=== PATIENT | female | born 1970 | race Caucasian/White ===

== ENCOUNTER → 2016-11-12 | Outpatient (CLI) | payer OTHER ==
--- NOTE | 2016-11-18 12:30 | MG ---
HISTORY: SCREENING Comparison: 01/19/2013, 01/11/2013 FINDINGS: Bilateral CC and MLO projections of the right and left breast were obtained. Heterogeneously dense fibroglandular tissue is seen to be present. No significant architectural distortion, mass or clust ered microcalcifications can be observed to suggest malignancy. No skin thickening or nipple retrac tion is appreciated. No pathological lymphadenopathy can be identified. New benign appearing calci fication is seen at the 6 o'clock position of the left breast. Stable rounded asymmetry in the later al right breast. IMPRESSION: NO RADIOGRAPHIC EVIDENCE OF MALIGNANCY. ACR CATEGORY 2: Benign findings FOLLOW-UP EXAM 1 YEAR. Diagnostic CAD was utilized and reviewed. * 0 (ZERO) - ASSESSMENT INCOMPLETE; ADDITIONAL IMAGING IS NEEDED. * 1/1 (ONE) - NEGATIVE. * 2/II (TWO) - BENIGN FINDINGS. * 3/III (THREE) - PROBABLY BENIGN FINDING; SHORT INTERVAL FOLLOW-UP SUGGESTED. * 4/IV (FOUR) - SUSPICIOUS ABNORMALITY; BIOPSY SHOULD BE CONSIDERED. * 5/V - HIGHLY SUSPICIOUS OF MALIGNANCY; BIOPSY SHOULD BE PERFORMED. A NEGATIVE X-RAY REPORT SHOULD NOT DELAY BIOPSY IF A DOMINANT OR CLINICALLY SUSPICIOUS MASS IS PRESENT; 4 TO 8 PERCENT OF CANCERS ARE NOT IDENTIFIED BY X-RAY. A NEG ATIVE REPORT MAY REINFORCE THE CLINICAL IMPRESSION. ADENOSIS AND DENSE BREASTS MAY OBSCURE AN UNDER LYING NEOPLASM. Reported By:
--- NOTE | 2016-11-18 12:42 | US ---
HISTORY: Left breast lump Comparison: 01/19/2013, 01/11/2013 FINDINGS: Mammogram: Bilateral CC and MLO projections of the right and left breast were obtained. Heterogeneo usly dense fibroglandular tissue is seen to be present. No significant architectural distortion, ma ss or clustered microcalcifications can be observed to suggest malignancy. No skin thickening or ni pple retraction is appreciated. No pathological lymphadenopathy can be identified. New benign appe aring calcification is seen at the 6 o'clock position of the left breast. Stable rounded asymmetry i n the lateral right breast. Ultrasound: Ultrasound of the right breast demonstrates multiple anechoic cystic lesions with smooth thin mcdaniels and posterior acoustic enhancement at the 3 o'clock and 4 o'clock positions. The largest at the 4 o'clock position measures 8 x 15 by 11 mm. Ultrasound of the left breast demonstrates a cy stic-appearing lesion in the retro area lower tissue with complex internal echoes measuring 1.1 x 2. 2 by 1.7 cm. There is an additional complex cystic lesion with internal echoes and possibly a septat ion at the 1 o'clock position measuring 1.6 x 0.8 x 1.0 cm. This could also represent 2 adjacent cys ts. IMPRESSION: Complex cysts in the left breast, the larger in the retroareolar region measuring up to 2.2 cm and an additional complex cyst at the 1 o'clock position measuring up to 1.6 cm. Multiple sm aller simple appearing cysts are seen in the right breast. Six-month followup bilateral mammogram an d ultrasound is recommended to evaluate for stability ACR CATEGORY 3: Probably benign findings, short interval followup is recommended. Diagnostic CAD was utilized and reviewed. * 0 (ZERO) - ASSESSMENT INCOMPLETE; ADDITIONAL IMAGING IS NEEDED. * 1/1 (ONE) - NEGATIVE. * 2/II (TWO) - BENIGN FINDINGS. * 3/III (THREE) - PROBABLY BENIGN FINDING; SHORT INTERVAL FOLLOW-UP SUGGESTED. * 4/IV (FOUR) - SUSPICIOUS ABNORMALITY; BIOPSY SHOULD BE CONSIDERED. * 5/V - HIGHLY SUSPICIOUS OF MALIGNANCY; BIOPSY SHOULD BE PERFORMED. A NEGATIVE X-RAY REPORT SHOULD NOT DELAY BIOPSY IF A DOMINANT OR CLINICALLY SUSPICIOUS MASS IS PRESENT; 4 TO 8 PERCENT OF CANCERS ARE NOT IDENTIFIED BY X-RAY. A NEG ATIVE REPORT MAY REINFORCE THE CLINICAL IMPRESSION. ADENOSIS AND DENSE BREASTS MAY OBSCURE AN UNDER LYING NEOPLASM. Reported By:
== END ==
LOC: RAD 12:54
PROVIDERS: ATTEND Family Medicine
DX: N63 Unspecified lump in breast (principal)
CPT/HCPCS: 76642; 77066